=== PATIENT | male | born 1975 | race Caucasian/White ===

== ENCOUNTER → 2023-12-05 06:18 | Day surgery (SDC) | payer OTHER, SELFPAY ==
[2023-12-05 07:11] LABS: Glucose - Point of Care 240 mg/dl (70-99)
== END ==
LOC: GI 06:18
PROVIDERS: ATTENDING PHYSICIAN Internal Medicine Gastroenterology
DX: Z12.11 Encounter for screening for malignant neoplasm of colon (principal); D12.3 Benign neoplasm of transverse colon; D12.5 Benign neoplasm of sigmoid colon
CPT/HCPCS: 45385; 88305; 82962

== ENCOUNTER 2025-03-04 16:47 | Emergency (ER) | payer OTHER, SELFPAY ==
[2025-03-04 16:55] VITALS: BP 147/96
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
[2025-03-04] MEDS: DECADRON 10 MG PO (20:19)
[2025-03-04] MEDS: TORADOL 30 MG IM (20:19)
[2025-03-04 20:29] VITALS: BP 141/80
== END 2025-03-04 20:31 | disposition home or self-care (01) ==
LOC: EMR 16:47
PROVIDERS: EMERGENCY PHYSICIAN Emergency Medicine; FAMILY PHYSICIAN Family Medicine
DX: M54.31 Sciatica, right side (principal)
CPT/HCPCS: 96372; 99284; 73502

== ENCOUNTER 2025-03-22 18:55 | Emergency (ER) | payer OTHER, SELFPAY ==
[2025-03-22 18:58] VITALS: BP 158/98
[2025-03-22 19:03] LABS: Glucose - Point of Care 508 mg/dl (70-99)
--- NOTE | 2025-03-22 19:56 | ED.GENMED ---
History of Present Illness
General
Chief Complaint: Blood Sugar Problem
Source: patient and spouse
Exam Limitations: none
Time Seen by Provider: 03/22/25 19:54
Nursing documentation reviewed up to this point in time: agreed with
History of Present Illness
History of Present Illness:
49-year-old male returns due to elevated blood sugar. He had steroid injection into his SI joint, and was given 5 units of insulin this morning. He takes metformin and glipizide, but took it a little bit later. He was also on prednisone 2 weeks
ago. For his back pain.
Past History
Past History
ED Past Medical History: NIDDM and Other (Back pain, herniated disc)
ED Past Surgical History: Other (Bilateral ear surgery as a child ); Negative Appendectomy or Bowel resection
Social History
Tobacco: Non-smoker
Alcohol: None
Drug: None
Personal:
Living: with family
Employment: Employed
Family History
Family History: Other (non contributory)
Review of Systems
Review of Systems
Allergies reviewed?: Yes
All Other Systems: Not applicable
Constitutional: Reports no symptoms
EENT: Reports no symptoms
Respiratory: Reports no symptoms
Cardiac: Reports no symptoms
ABD/GI: Reports no symptoms
: Reports no symptoms
Musculoskeletal: Reports no symptoms
Skin: Reports no symptoms
Neurological: Reports no symptoms
Endocrine: Reports no symptoms
Hematologic/Lymphatic: Reports no symptoms
Psychiatric: Reports no symptoms
Phy Exam
Physical Exam
Physical Exam:
Physical Exam
General: no apparent distress, not acutely ill
Neck: supple. no meningeal signs. normal posterior pharynx
Heart: s1/s2 regular rate and rhythm, no murmur. equal radial
pulses.
HEENT: Pupils equal round reactive to light, EOMI
Lungs: no acute respiratory distress. clear bilaterally
Abdomen: normal bowel sounds. not tender. no CVAT
Neuro: alert and oriented. no focal neurological deficits cranial nerves II through XII intact
Skin: no rash
Psychiatric: well kept. interactive and cooperative
Extremities: no edema. no calf tenderness. negative homans. good distal pulses
Skin
Course
Orders/Labs/Results
Orders:
Orders
03/22/25 19:54
Bedside Glucose- Treatment Q1H
IV Insert/Care/Rem.- Treatment PRN
0.9% Sodium Chloride 1000 ml [Nss] 1,000 ml IV BOLUS
0.9% Sodium Chloride 1000 ml [Nss] 1,000 ml IV BOLUS
03/22/25 19:56
Electrocardiogram (*1) Urgent
Reason for Study: Palpitations
EKG- Treatment ONCE
03/22/25 20:14
B-Hydroxybutyrate Urgent
Basic Metabolic Panel Urgent
Complete Blood Count/With Diff Urgent
Venous Blood Gas Urgent
%Oxygen/Room Air: 95/RA
03/22/25 20:34
Urinalysis Urgent
Date Specimen was Collected: 03/22/25
Time Specimen was Collected: 20:32
03/22/25 20:59
Insulin Human Regular [Novolin R] 8 units IV NOW STA
Abnormal Lab Results
03/22/25 03/22/25 03/22/25
19:01 20:14 20:34
Abs Immat Gran (auto) 0.1 H 10^3/uL
(0-0.05)
Absolute Neuts (auto) 6.6 H 10^3/uL
(1.4-6.5)
Immature Gran % 0.6 H %
(0-0.5)
Neutrophils % 80.9 H %
(42.2-75.2)
Lymphocytes % 17.7 L %
(20.5-51.1)
Monocytes % 0.7 L %
(1.7-9.3)
VBG pH 7.31 L
(7.32-7.43)
VBG pCO2 51 H mmHg
(35-48)
VBG pO2 59 H mmHg
(30-50)
Chloride 97 L mmol/L
(98-107)
BUN 21 H mg/dl
(9-20)
Glucose 409 H mg/dl
(70-99)
Urine Ketones 1+ A
(Negative)
Urine Glucose 4+ A
(Negative)
POC Glucose 508 H* mg/dl
(70-99)
03/22/25 20:14
03/22/25 20:14
Vital Signs
Initial and Last Documented VS:
Initial Vital Signs
Temp Pulse Resp BP Pulse Ox
98.3 F 110 16 158/98 95
03/22/25 18:58 03/22/25 18:58 03/22/25 18:58 03/22/25 18:58 03/22/25 18:58
Last Documented Vital Signs
Temp Pulse Resp BP Pulse Ox
98.4 F 97 18 124/72 93
03/22/25 20:51 03/22/25 21:00 03/22/25 21:00 03/22/25 21:00 03/22/25 21:00
MDM/Problems Addressed
Differential Diagnosis Includes:
DKA, HHS
MDM/Problems Addressed:
49-year-old male with hyperglycemia. No signs of DKA or H at bedtime. Blood sugar improved. Patient stable for discharge.
Acute Exacerbation and/or Progression of Chronic Illness: DM
*Pulse Oximetry
Patient hypoxic: no
*EKG
Interpreted by ED Provider?: Yes
EKG Intrepretation Date: 03/22/25
EKG Intrepretation Time: 20:29
Interpretation: abnormal
Comparison EKG: no comparison EKG present
Heart Rate: 106
Rate: tachycardiac
Rhythm: sinus tachycardia
[place]: normal axis
Interval: normal interval
QRS Pattern: normal QRS
Ischemia: non-specific ST changes
*Critical Care Note
Total Time (30-74mins, 75-104mins- exclusive of procedures): Not Applicable
Patient Management
Social determinants of health affecting care: Living situation and Strong social support
Escalation/DeEscalation of care consider admission/obs:
Admit not indicated
ED Attending Note
-
Portions of this chart may have been created with voice recognition software.� Occasional wrong word or��sound alike� substitutions may have occurred due to the inherent limitations of voice recognition software.
Discharge Plan
Departure
Patient Disposition: Home (Routine Discharge)
Date of Disposition: 03/22/25
Time of Disposition: 22:34
Patient with high blood pressure during this ER visit?: Yes
Condition: Good
Discharge Problem:
Hyperglycemia due to type 2 diabetes mellitus
Instructions: Type 2 Diabetes (DC), High blood sugar in adults - ED discharge instructions, BLOOD PRESSURE
Prescriptions:
No Action
hydrocodone-acetaminophen [Vicodin] 1 EACH tablet
1 ea PO Q6HPRN PRN (Reason: pain) Qty: 15 0RF
ibuprofen 600 MG tablet
600 mg PO Q6H Qty: 30 0RF
ondansetron 4 MG tablet,disintegrating
4 mg PO TIDPRN PRN (Reason: NAUSEA) Qty: 20 0RF
hydrocodone-acetaminophen [Vicodin] 1 EACH tablet
1 ea PO Q4 PRN (Reason: pain) Qty: 14 0RF
prednisone 10 mg Tablet
See Rx Instructions .ROUTE .COMPLEX Qty: 30 0RF
Rx Instructions:
Take By Mouth:
40 mg daily x3 days, 30 mg daily x3 days,
20 mg daily x3 days, 10 mg daily x3 days.
Referrals:
Elizabeth Crandall DO [Family Provider, Family Practice] - Call in 1-3 days for appt
Interventions
Interventions:
*Risk Screen - Suicide Last Done: 03/22/25 19:04
*Neglect/Abuse Screening Last Done: 03/22/25 19:04
ED- Neurological Assessment Last Done: 03/22/25 20:51
Discharge Date and Time
Print Language: ARABIC
[2025-03-22] MEDS: NSS 1000 IV ×2 (20:16→20:23)
[2025-03-22 20:27] LABS: Venous Blood Gas B.E. -1.3 mmol/L (-4 to +4); Venous Blood Gas HCO3 25.7 mmol/L (22-27); Venous Blood Gas O2 Sat % 90.5 %; Venous Blood Gas pCO2 51 mmHg (35-48); Venous Blood Gas pH 7.31 (7.32-7.43); Venous Blood Gas pO2 59 mmHg (30-50)
[2025-03-22 20:38] VITALS: BP 145/98
[2025-03-22 20:38] LABS: Hematocrit 40.7 % (39.0-52.0); Hemoglobin 14.1 g/dL (13.0-18.0); Mean Corp Hgb Conc. 34.6 g/dL (33.0-37.0); Mean Corpuscular Hgb 29.6 pg (27.0-31.0); Mean Corpuscular Volume 85.5 fL (80.0-94.0); Platelet Count 327 10^3/uL (130-400); Red Blood Cell Count 4.76 10^6/uL (4.70-6.10); Red Cell Dist. Width 12.2 % (11.5-14.5); White Blood Cell Count 8.2 10^3/uL (4.8-10.8)
[2025-03-22 20:40] LABS: Blood Urea Nitrogen 21 mg/dl (9-20); Calcium 10.1 mg/dl (8.4-10.2); Carbon Dioxide 23 mmol/L (22-30); Chloride 97 mmol/L (98-107); Glucose 409 mg/dl (70-99); Potassium 4.5 mmol/L (3.5-5.1); Sodium 135 mmol/L (135-145); eGFR > 60.00
[2025-03-22 20:45] LABS: Urine Albumin Negative (Neg - Trace); Urine Bilirubin Negative (Negative); Urine Character Clear (Clear); Urine Color Yellow; Urine Glucose 4+ (Negative); Urine Ketone 1+ (Negative); Urine Leukocyte Negative (Negative); Urine Nitrite Negative (Negative); Urine Occult Blood Negative (Negative); Urine Specific Gravity 1.015 (<1.030); Urine Urobilinogen Negative (Neg - 1+)
[2025-03-22 20:46] LABS: B-Hydroxybutyrate 0.23 mmol/L (0.02-0.27)
[2025-03-22 20:51] VITALS: BP 145/98; BMI 32.2
[2025-03-22 21:00] VITALS: BP 124/72
[2025-03-22 21:04] LABS: % Basophils 0.1 % (0-2); % Immature Granulocytes 0.6 % (0-0.5); % Lymphocytes 17.7 % (20.5-51.1); % Monocytes 0.7 % (1.7-9.3); % Neutrophils 80.9 % (42.2-75.2); Absolute Immature Granulocytes 0.1 10^3/uL (0-0.05); Absolute Lymphocytes 1.5 10^3/uL (1.2-3.4); Absolute Monocytes 0.1 10^3/uL (0.1-0.6); Absolute Neutrophils 6.6 10^3/uL (1.4-6.5); Nucleated Red Blood Cells % 0 % (-)
[2025-03-22] MEDS: NOVOLIN R 8 UNITS IV (21:16)
[2025-03-22 22:01] VITALS: BP 134/67
== END 2025-03-22 23:21 | disposition home or self-care (01) ==
LOC: EMR 18:55
PROVIDERS: EMERGENCY PHYSICIAN Emergency Medicine; FAMILY PHYSICIAN Family Medicine
DX: E11.65 Type 2 diabetes mellitus with hyperglycemia (principal); R00.0 Tachycardia, unspecified; Z79.4 Long term (current) use of insulin
CPT/HCPCS: 99284; 80048; 81003; 82010; 82805; 82962; 85025; 93005